=== PATIENT | female | born 1955 | race Caucasian/White ===

== ENCOUNTER 2016-10-22 16:54 | Emergency (ER) | payer BC, MEDICAID ==
[~2016-10-22] VITALS: Ht 152.4 cm; Wt 80.0 kg
[2016-10-22 17:19] VITALS: Ht 152.4 cm; Wt 80.0 kg
--- NOTE | 2016-10-22 17:20 | ERD ---
ER Documentation Chief Complaint Date/Time DATE: 10/22/16 TIME: 17:18 Chief Complaint HPI 61-year-old female history of diabetes who presents the emergency room with generalized weakness. The patient was called as a code green. She is currently been visiting her over the last 3 days in the hospital. She has not gotten very much sleep. She was sitting in the waiting room and felt like she could not stand up. The patient is feeling better now. She wished to have her glucose checked. Accu-Chek is 190 upon arrival. The patient denies any headache chest pain or shortness of breath, no motor weakness, no abdominal pain. ROS All systems reviewed and are negative except as per history of present illness. FmHx Family History: No diabetes Physical Exam Vitals Vital Signs Date Time Temp Pulse Resp B/P Pulse Ox O2 Delivery O2 Flow Rate FiO2 10/22/16 17:19 98.7 81 18 129/71 99 Physical Exam General: Well developed, well nourished, no acute distress Head: Normocephalic, atraumatic. Eyes: Pupils equally reactive, EOM intact ENT: Moist mucous membranes Neck: Supple, no lymphadenopathy Respiratory: Lungs clear bilaterally, no distress Cardiovascular: RRR, no murmurs, rubs, or gallops Abdominal: Soft, non-tender, non-distended, no peritoneal signs : Deferred MSK: No edema, no unilateral swelling, 5/5 strength Neurologic: Alert and oriented, moving all extremities, normal speech, no focal weakness, no cerebellar signs Skin: No rash Psych: Normal mood Results 24 hrs Laboratory Tests Test 10/22/16 17:03 Bedside Glucose 197mg/dL Procedures/MDM The patient has signs and symptoms consistent with grief reaction, generalized weakness that are likely secondary to decreased sleep given the fact that she has been visiting her in the hospital over the last 3 days. She has no focal weakness and no signs or symptoms concerning for stroke or acute process. Given the patient's age, comorbidities I did offer and recommend laboratory testing, EKG however the patient states that she just wishes to get back to her . I believe this is reasonable. Her Accu-Chek was 190. No evidence of DKA. The patient has nonfocal exam. Again no evidence of stroke. The patient can be safely discharged. We discussed follow up with the patient's primary care doctor within 24 to 48 hours as needed. We also discussed return to the emergency room for worsening symptoms or worsening condition. Outpatient referral: [None required] Departure Diagnosis: Primary Impression: Generalized weakness Condition: Stable Patient Instructions: Generalized Weakness Additional Instructions: Call your primary care doctor TOMORROW for an appointment during the next 1 WEEK.Tell the medical secretary receptionist that you were referred from this facility.See the doctor sooner or return here if your condition worsens before your appointment time. LUIS FELIPE OLIVARES MD Oct 22, 2016 17:19
== END 2016-10-22 17:45 | disposition home or self-care (01) ==
LOC: E/R 16:54
DX: R53.1 Weakness (principal); E11.9 Type 2 diabetes mellitus without complications
CPT/HCPCS: 82962; 99282